=== PATIENT | female | born 1975 | race Two or more races ===

== ENCOUNTER 2023-12-29 06:07 | Emergency (ER) | payer OTHER ==
[~2023-12-29] VITALS: Ht 160 cm; Wt 90.9 kg
[2023-12-29 06:20] VITALS: TEMP 98.4
[2023-12-29 06:46] LABS: GLUCOMETER DEV NAME(LOC) ER.7; GLUCOSE,POINT OF CARE 194 MG/DL (70-110)
[2023-12-29 08:08] LABS: BASOPHILS % (AUTO) 0.8 % (0.0-2.0); EOSINOPHILS % (AUTO) 1.9 % (1.0-6.0); LYMPHOCYTES # (AUTO) 0.9 K/uL (1.0-4.8); LYMPHOCYTES % (AUTO) 15.7 % (22.0-44.0); MEAN CORPUSCULAR HEMOGLOBIN 24.6 pg (26.0-34.0); MEAN CORPUSCULAR HGB CONC 31.5 G/dL (31.0-37.0); MEAN CORPUSCULAR VOLUME 78 fL (80-100); MONOCYTES # (AUTO) 0.3 K/uL (0.1-1.0); MONOCYTES % (AUTO) 5.3 % (2.0-9.0); NEUTROPHILS # (AUTO) 4.6 K/uL (1.8-7.7); NEUTROPHILS % (AUTO) 76.3 % (40.0-70.0); PLATELET COUNT (AUTO) 524 K/uL (150-450); RED BLOOD CELL COUNT(AUTO) 4.87 MIL/uL (4.00-5.20); RED CELL DISTRIBUTION WIDTH 16.5 % (11.5-14.5)
[2023-12-29 08:16] LABS: ANION GAP 11 mmol/L (8-16); CALCIUM, TOTAL 8.5 mg/dL (8.8-10.5); CARBON DIOXIDE 25 mmol/L (22-29); CHLORIDE 99 mmol/L (98-107); CREATININE 0.74 mg/dL (0.60-1.30); GLOMERULAR FILTR. RATE CALC > 60 mL/min (>60); GLUCOSE,RANDOM 222 mg/dL (70-110); POTASSIUM 3.3 mmol/L (3.5-5.1); SODIUM SERUM 135 mmol/L (136-145); UREA NITROGEN, BLOOD 14 mg/dL (7-18)
[2023-12-29] MEDS: HYDROCHLOROTHIAZIDE 25 MG TABLET PO ONE (08:17)
[2023-12-29] MEDS: ACETAMINOPHEN 325 MG TABLET PO ONE (08:18)
[2023-12-29] MEDS: NIFEdipine 30 MG ER TABLET PO ONE (08:18)
[2023-12-29 08:27] LABS: TROPONIN I-HIGH SENSITIVITY 19 ng/L (<51)
[2023-12-29] MEDS: POTASSIUM CHLORIDE 8 MEQ ER TABLET PO ONE (09:11)
[2023-12-29] MEDS: MAGNESIUM SULFATE 2 GM/WATER 50 ML IV ONE (10:18)
[2023-12-29 12:00] VITALS: BP 131/85; PULSE 74; RESP 16; O2SAT 97
== END 2023-12-29 12:10 | disposition home or self-care (01) ==
LOC: EMS 06:07
DX: D75.839 Thrombocytosis, unspecified (principal); E87.6 Hypokalemia; I10 Essential (primary) hypertension; R51.9 Headache, unspecified
CPT/HCPCS: 99284; 96365; 80048; 82962; 83735; 84484; 85025; 36415; 93005; J3475